=== PATIENT | female | born 1955 | race Caucasian/White ===

== ENCOUNTER 2024-08-06 13:04 | Emergency (ER) | payer OTHER, SELFPAY ==
[2024-08-06 13:14] VITALS: BP 113/55
--- NOTE | 2024-08-06 16:42 | ED.GENMED ---
History of Present Illness
General
Chief Complaint: Musculo-Skeletal Complaint
Source: patient and spouse
Exam Limitations: none
Time Seen by Provider: 08/06/24 14:44
History of Present Illness
History of Present Illness:
68-year-old female presents after fall yesterday. Patient states she slipped on ice and fell down onto her right side. She complains of pain near the right shoulder. She denies neck pain. No back pain. She reports a little bit of pain at the
left tip of the scapula. No lower extremity symptom. No head injury. No anticoagulation. states that she has been trying aspirin
Past History
Past History
ED Past Medical History: None
Phy Exam
Physical Exam
Physical Exam:
CONSTITUTIONAL Vital signs reviewed, Patient alert and oriented to person, place and time. Well-appearing
HEAD atraumatic, normocephalic.
EYES eyelids normal to inspection, Extraocular muscles intact, Conjunctiva normal, Sclera normal.
NECK normal range of motion, Trachea midline, no jugular venous distention. No midline tenderness
RESP no respiratory distress
BACK No obvious deformities no midline tenderness
UPPER EXTREMITY moderate tenderness at the proximal humerus. Swelling noted. No ecchymosis noted. Gross motor strength normal normal distal cap refill
LOWER EXTREMITY Gross range of motion normal, Gross motor strength normal
NEURO Speech normal, No focal motor deficits include, [place] coma scale 15, Memory normal, Cranial Nerves intact to screening exam.
SKIN Skin warm, dry, and normal in color.
PSYCHIATRIC Patient oriented to person place and time, Normal affect.
Course
Orders/Labs/Results
Orders:
Orders
08/06/24 13:14
Humerus, Right 2 Views [CR Humerus - Right Min 2 View*] Urgent
Comment:
Reason For Exam: pain, trauma
08/06/24 16:42
Sling Right-Treatment ONCE
Vital Signs
Initial and Last Documented VS:
Initial Vital Signs
Temp Pulse Resp Pulse Ox
98.4 F 78 18 98
08/06/24 13:12 08/06/24 13:12 08/06/24 13:12 08/06/24 13:12
Last Documented Vital Signs
Temp Pulse Resp BP Pulse Ox
98.4 F 78 18 113/55 98
08/06/24 13:12 08/06/24 13:12 08/06/24 13:12 08/06/24 13:14 08/06/24 13:12
MDM/Problems Addressed
Differential Diagnosis Includes:
AC joint separation, humerus fracture, joint dislocation
MDM/Problems Addressed:
Proximal humerus fracture
*Radiology
Radiology exam reviewed: preliminary read by ED provider (Proximal humerus fracture)
*Pulse Oximetry
Patient hypoxic: no
*Critical Care Note
Total Time (30-74mins, 75-104mins- exclusive of procedures): Not Applicable
Data Reviewed
Source: patient and spouse
Further Testing Considered But Not Given:
Consider head CT but no outward signs of trauma and currently no
Patient Management
Escalation/DeEscalation of care consider admission/obs:
Patient appears well. Humerus fracture noted. Referred to orthopedics for outpatient
ED Attending Note
-
Portions of this chart may have been created with voice recognition software.� Occasional wrong word or��sound alike� substitutions may have occurred due to the inherent limitations of voice recognition software.
Discharge Plan
Departure
Patient Disposition: Home (Routine Discharge)
Date of Disposition: 08/06/24
Time of Disposition: 16:45
Patient with high blood pressure during this ER visit?: No
Discharge Problem:
Fracture of proximal end of humerus
Instructions: How to Use a Shoulder Sling, Upper Arm Fracture ED
Referrals:
Angel Garcia MD [Active] -
Jomar Shultz DO [Family Provider] -
Activity Restrictions/Additional Instructions:
Please rest and ice your injured arm. Please use ibuprofen every 6 hours for pain control. Please see orthopedics in the next 3 to 5 days for follow-up and reevaluation. Return immediately for numbness, tingling, worsening pain, or any other
concerns.
Interventions
Interventions:
*Risk Screen - Suicide Last Done: 08/06/24 14:31
*General Assessment Last Done: 08/06/24 14:31
*Neglect/Abuse Screening Last Done: 08/06/24 14:31
ED- Fall Risk Assessment Last Done: 08/06/24 14:31
*ED COVID-19 Vaccine History Last Done: 08/06/24 14:31
ED-Musculoskeletal Assessment Last Done: 08/06/24 14:31
Discharge Date and Time
Print Language: [id number]
== END 2024-08-06 17:25 | disposition home or self-care (01) ==
LOC: EMR 13:04
PROVIDERS: EMERGENCY PHYSICIAN Emergency Medicine; FAMILY PHYSICIAN Family Medicine
DX: S49.91XA Unspecified injury of right shoulder and upper arm, initial encounter (principal); W00.0XXA Fall on same level due to ice and snow, initial encounter
CPT/HCPCS: 99283; 73060